=== PATIENT | female | born 2000 | race Caucasian/White ===

== ENCOUNTER 2023-12-17 22:43 | Emergency (ER) | payer OTHER ==
[~2023-12-17] VITALS: Ht 154.9 cm; Wt 59.0 kg
[2023-12-17 22:56] VITALS: BP 125/82; PULSE 83; RESP 18; TEMP 97.8; O2SAT 98
[2023-12-17] MEDS: IBUPROFEN 600 MG TAB PO ONE (23:46)
== END 2023-12-18 00:32 | disposition home or self-care (01) ==
LOC: MED 22:43
DX: S86.912A Strain of unspecified muscle(s) and tendon(s) at lower leg level, left leg, initial encounter (principal); R07.89 Other chest pain; R51.9 Headache, unspecified; M53.3 Sacrococcygeal disorders, not elsewhere classified; R03.0 Elevated blood-pressure reading, without diagnosis of hypertension; V49.59XA Passenger injured in collision with other motor vehicles in traffic accident, initial encounter; Y93.89 Activity, other specified; Y92.410 Unspecified street and highway as the place of occurrence of the external cause; Y99.8 Other external cause status
CPT/HCPCS: 71101; 73562; 99284